=== PATIENT | female | born 1990 | race Two or more races ===

== ENCOUNTER 2024-11-14 18:50 | Emergency (ER) | payer OTHER ==
[~2024-11-14] VITALS: Ht 160 cm; Wt 117.9 kg
[2024-11-14] MEDS ORDERED: CEFTRIAXONE SODIUM 1,000 MG VIAL IV ONE (20:45)
[2024-11-14] MEDS ORDERED: CEFTRIAXONE SODIUM 1,000 MG VIAL ONE (21:25)
[2024-11-14 22:24] LABS: BASO % 0.4 % (0.1-1.2); EOS # 0.10 (0.04-0.54); EOS % 1.0 % (0.7-7.0); LYMPH # 2.41 (1.18-3.74); LYMPH % 24.5 % (19.3-53.1); MEAN PLATELET VOLUME 10.50 fl (9.4-12.4); MONO # 0.76 (0.24-0.82); MONO % 7.7 % (4.7-12.5); NEUT # 6.47 (1.56-6.13); NEUT % 65.8 % (34.0-71.1); RED CELL DISTRIBUTION WIDTH 12.7 % (11.6-14.4)
[2024-11-14] MEDS ORDERED: AMOX-CLAV 875-1 EAC1 PO (22:36)
== END 2024-11-14 23:22 | disposition home or self-care (01) ==
LOC: ER 18:50
PROVIDERS: General Practice
DX: L08.82 Omphalitis not of newborn (principal)